=== PATIENT | male | born 1975 | race Caucasian/White ===

== ENCOUNTER 2016-08-22 09:53 | Observation (INO) | payer BC ==
[~2016-08-22] VITALS: Ht 180.3 cm; Wt 96.8 kg
[~2016-08-22 09:53] MED LIST: CEPHALEXIN500 M1 PO; LORTAB 10/500 51 TAB PO; NAPROSYN500 MG PO; NEXIUM40 MG PO
[2016-08-22] MEDS ORDERED: MSIR30 MG PO (09:59)
[2016-08-22] MEDS ORDERED: VIVLODEX10 MG PO (09:59)
[2016-08-22] MEDS ORDERED: NEURONTIN300 MG/CAP PO (09:59)
[2016-08-22] MEDS ORDERED: PRINIVIL10 MG PO (10:00)
[2016-08-22] MEDS ORDERED: ADDERALL20 MG PO (10:00)
[2016-08-22] MEDS ORDERED: HUMIRA40 MG/0.1 SQ (10:17)
[2016-08-22 12:02] LABS: BASO # 0.1 (0.0-0.2); BASO % 0.8 % (0.0-2.0); EOS # 0.3 (0.0-0.7); EOS % 4.4 % (0-4.0); GRAN # 3.7 (1.4-6.5); GRAN % 48.1 % (42.2-75.2); HEMATOCRIT 40.5 % (42.0-52.0); HEMOGLOBIN 13.2 g/dl (13.5-18.0); LYMPH # 2.9 (1.2-3.4); LYMPH % 37.8 % (20.0-51.0); MEAN CELL VOLUME 82 fl (80.0-100.0); MEAN CORPUSCULAR HEMOGLOBIN 27 pg (27.0-31.0); MEAN CORPUSCULAR HGB CONC 33 g/dl (33.0-37.0); MEAN PLATELET VOLUME 9.5 fl (7.4-10.4); MONO # 0.7 (0.1-0.6); MONO % 8.6 % (1.7-9.3); PLATELET COUNT 246 K/mm3 (130-400); RED BLOOD COUNT 4.94 M/mm3 (4.20-5.60); REDCELL DISTRIBUTION WIDTH-CV 13.5 % (11.5-14.5); WHITE BLOOD COUNT 7.8 K/mm3 (4.8-10.8)
[2016-08-22 12:11] LABS: ADJUSTED CALCIUM 9.2 mg/dL (8.4-10.2); ALBUMIN 4.1 gm/dL (3.5-5.0); BILIRUBIN,TOTAL 0.9 mg/dL (0.0-1.0); C-REACTIVE PROTEIN 1.2 mg/dL (0.0-0.9); CALCIUM 9.3 mg/dL (8.4-10.2); CREATININE, serum 0.71 mg/dL (0.66-1.25); POTASSIUM 4.1 mmol/L (3.4-5.0)
[2016-08-22 15:13] VITALS: BP 117/80; PULSE 78; TEMP 97.5
[2016-08-22 15:21] VITALS: BP 109/66; PULSE 72
[2016-08-22] MEDS ORDERED: MS CONTIN 330 MG/TAB PO (19:06)
[2016-08-22 19:36] VITALS: BP 145/86; PULSE 83; TEMP 97.8
[2016-08-22 23:25] VITALS: BP 127/75; PULSE 78; TEMP 97.5
[2016-08-23 03:21] VITALS: BP 127/85; PULSE 88; TEMP 97.9
[2016-08-23 04:50] LABS: BASO # 0.1 (0.0-0.2); BASO % 0.9 % (0.0-2.0); EOS # 0.4 (0.0-0.7); EOS % 5.1 % (0-4.0); GRAN # 2.7 (1.4-6.5); GRAN % 39.3 % (42.2-75.2); HEMATOCRIT 39.8 % (42.0-52.0); HEMOGLOBIN 12.7 g/dl (13.5-18.0); LYMPH # 3.2 (1.2-3.4); LYMPH % 46.5 % (20.0-51.0); MEAN CELL VOLUME 84 fl (80.0-100.0); MEAN CORPUSCULAR HEMOGLOBIN 27 pg (27.0-31.0); MEAN CORPUSCULAR HGB CONC 32 g/dl (33.0-37.0); MEAN PLATELET VOLUME 9.9 fl (7.4-10.4); MONO # 0.6 (0.1-0.6); MONO % 8.1 % (1.7-9.3); PLATELET COUNT 233 K/mm3 (130-400); RED BLOOD COUNT 4.72 M/mm3 (4.20-5.60); REDCELL DISTRIBUTION WIDTH-CV 13.6 % (11.5-14.5); WHITE BLOOD COUNT 6.8 K/mm3 (4.8-10.8)
[2016-08-23 05:36] LABS: C-REACTIVE PROTEIN 1.1 mg/dL (0.0-0.9); CALCIUM 9.1 mg/dL (8.4-10.2); CREATININE, serum 0.73 mg/dL (0.66-1.25); POTASSIUM 4.4 mmol/L (3.4-5.0)
[2016-08-23 07:30] VITALS: BP 131/84; PULSE 73; TEMP 97.6
[2016-08-23 12:56] VITALS: BP 142/90; PULSE 68; TEMP 98.6
[2016-08-23] MEDS ORDERED: DOXYCYCLINE 10100 MG PO (15:23)
== END 2016-08-23 16:23 | disposition home or self-care (01) ==
LOC: COL.ER 09:53 → MEDICAL 12:41
PROVIDERS: Family Medicine; Nurse Practitioner
DX: L03.115 Cellulitis of right lower limb (principal); Z86.14 Personal history of Methicillin resistant Staphylococcus aureus infection; G89.29 Other chronic pain; M54.5 Low back pain; F41.9 Anxiety disorder, unspecified; L40.9 Psoriasis, unspecified; I10 Essential (primary) hypertension
CPT/HCPCS: 99222-AI; G0378; J1650; J3370; J7030; J7050

== ENCOUNTER 2016-08-27 10:30 | Emergency (ER) | payer BC ==
[~2016-08-27] VITALS: Ht 180.3 cm; Wt 95.5 kg
[~2016-08-27 10:30] MED LIST changes: +ADDERALL20 MG PO; +DOXYCYCLINE 10100 MG PO; +HUMIRA40 MG/0.1 SQ; +MS CONTIN 330 MG/TAB PO; +MSIR30 MG PO; +NEURONTIN300 MG/CAP PO; +PRINIVIL10 MG PO; +VIVLODEX10 MG PO
[2016-08-27 10:37] VITALS: BP 130/83; PULSE 81; TEMP 98.2
== END 2016-08-27 16:10 | disposition left against medical advice (07) ==
LOC: COL.ER 10:30
DX: Z53.9 Procedure and treatment not carried out, unspecified reason (principal)

== ENCOUNTER → 2016-09-20 | Outpatient (CLI) | payer OTHER | LOC: BHSO 08:03 | DX: F90.0 Attention-deficit hyperactivity disorder, predominantly inattentive type (principal) ==

== ENCOUNTER → 2017-03-22 | Outpatient (CLI) | payer OTHER | LOC: BHSO 08:03 | DX: F90.0 Attention-deficit hyperactivity disorder, predominantly inattentive type (principal) ==

== ENCOUNTER 2017-09-04 06:19 | Emergency (ER) | payer OTHER ==
[~2017-09-04] VITALS: Ht 180.3 cm; Wt 93.2 kg
[~2017-09-04 06:19] MED LIST changes: +MOBIC15 MG PO; +NEXIUM 40MG40 MG PO; -NEXIUM40 MG PO; -VIVLODEX10 MG PO
[2017-09-04 06:21] VITALS: TEMP 96.7
[2017-09-04 07:04] LABS: COLLECTION METHOD CLEAN CATCH
[2017-09-04 07:10] LABS: BASO # 0.1 (0.0-0.2); BASO % 0.7 % (0.0-2.0); EOS # 0.3 (0.0-0.7); EOS % 3.4 % (0-4.0); GRAN # 6.5 (1.4-6.5); GRAN % 66.1 % (42.2-75.2); HEMATOCRIT 42.8 % (42.0-52.0); HEMOGLOBIN 13.9 g/dl (13.5-18.0); LYMPH # 2.3 (1.2-3.4); LYMPH % 23.4 % (20.0-51.0); MEAN CELL VOLUME 84 fl (80.0-100.0); MEAN CORPUSCULAR HEMOGLOBIN 27 pg (27.0-31.0); MEAN CORPUSCULAR HGB CONC 33 g/dl (33.0-37.0); MEAN PLATELET VOLUME 9.8 fl (7.4-10.4); MONO # 0.6 (0.1-0.6); MONO % 6.2 % (1.7-9.3); PLATELET COUNT 250 K/mm3 (130-400); RED BLOOD COUNT 5.09 M/mm3 (4.20-5.60); REDCELL DISTRIBUTION WIDTH-CV 13.3 % (11.5-14.5)
[2017-09-04 07:15] LABS: ALBUMIN 4.5 gm/dL (3.5-5.0); BILIRUBIN,TOTAL 0.6 mg/dL (0.0-1.0); CALCIUM 9.4 mg/dL (8.4-10.2); CREATININE, serum 0.8 mg/dL (0.66-1.25); POTASSIUM 4.2 mmol/L (3.4-5.0); TOTAL PROTEIN 7.1 gm/dL (6.4-8.2)
[2017-09-04 07:16] LABS: MUCOUS Present /lpf; PH 5 (5-8); SQUAMOUS EPITHELIAL None Seen /hpf; URINE APPEARANCE Hazy; URINE BACTERIA None Seen /hpf; URINE BILIRUBIN Negative (NEGATIVE); URINE BLOOD 3+ (NEGATIVE); URINE COLOR Yellow; URINE GLUCOSE 1+ (NEGATIVE); URINE KETONE Trace (NEGATIVE); URINE LEUKOCYTE ESTERASE Negative (NEGATIVE); URINE NITRATE Negative (NEGATIVE); URINE PROTEIN(semi-quant) 1+ (NEGATIVE); URINE RBC >50 /hpf
[2017-09-04] MEDS ORDERED: NORCO 325 MG-51 TAB PO (07:51)
[2017-09-04] MEDS ORDERED: ZOFRAN 4MG T4 MG/TAB PO ×2 (07:51→08:36)
[2017-09-04] MEDS ORDERED: GLUCOPHAGE500 MG/TAB PO (07:58)
[2017-09-04] MEDS ORDERED: HUMIRA40 MG/0.8 SQ (07:59)
[2017-09-04] MEDS ORDERED: ZESTRIL 10MG10 MG PO (07:59)
[2017-09-04] MEDS ORDERED: MOBIC15 MG PO (07:59)
[2017-09-04] MEDS ORDERED: ADDERALL20 MG PO (08:01)
[2017-09-04] MEDS ORDERED: NORCO 325 MG-7.1 TAB PO (08:04)
[2017-09-04] MEDS ORDERED: PERCOCET 325 MG1 TA3 PO (08:05)
[2017-09-04 08:19] VITALS: BP 137/94; PULSE 70
[2017-09-04] MEDS ORDERED: FLOMAX 0.40.4 MG/CAP PO (08:36)
== END 2017-09-04 08:37 | disposition home or self-care (01) ==
LOC: COL.ER 06:19
PROVIDERS: Emergency Medicine
DX: N20.1 Calculus of ureter (principal); K21.9 Gastro-esophageal reflux disease without esophagitis; F17.210 Nicotine dependence, cigarettes, uncomplicated; Z79.84 Long term (current) use of oral hypoglycemic drugs; Z87.442 Personal history of urinary calculi; Z88.2 Allergy status to sulfonamides; Z88.6 Allergy status to analgesic agent
CPT/HCPCS: J1170; J1885; J2405; J3010; J7030

== ENCOUNTER → 2017-09-06 | Outpatient (CLI) | payer OTHER ==
[~2017-09-06] MED LIST changes: +FLOMAX 0.40.4 MG/CAP PO; +GLUCOPHAGE500 MG/TAB PO; +HUMIRA40 MG/0.8 SQ; +NORCO 325 MG-51 TAB PO; +NORCO 325 MG-7.1 TAB PO; +PERCOCET 325 MG1 TA3 PO; +ZESTRIL 10MG10 MG PO; +ZOFRAN 4MG T4 MG/TAB PO
== END ==
LOC: BHSO 07:55
DX: F90.0 Attention-deficit hyperactivity disorder, predominantly inattentive type (principal)
CPT/HCPCS: G0463

== ENCOUNTER → 2018-03-07 | Outpatient (CLI) | payer OTHER | LOC: BHSO 08:03 | DX: F90.0 Attention-deficit hyperactivity disorder, predominantly inattentive type (principal) | CPT/HCPCS: G0463 ==

== ENCOUNTER 2018-04-07 10:00 | Emergency (ER) | payer OTHER ==
[~2018-04-07] VITALS: Ht 180.3 cm; Wt 93.2 kg
[2018-04-07 10:05] VITALS: BP 161/101; TEMP 99
[2018-04-07 11:05] VITALS: PULSE 80
== END 2018-04-07 11:06 | disposition home or self-care (01) ==
LOC: COL.ER 10:00
DX: S09.90XA Unspecified injury of head, initial encounter (principal); S01.111A Laceration without foreign body of right eyelid and periocular area, initial encounter; Z79.84 Long term (current) use of oral hypoglycemic drugs; W22.8XXA Striking against or struck by other objects, initial encounter

== ENCOUNTER → 2018-10-17 | Outpatient (CLI) | payer OTHER | LOC: BHSO 07:54 | DX: F90.0 Attention-deficit hyperactivity disorder, predominantly inattentive type (principal) | CPT/HCPCS: G0463 ==

== ENCOUNTER → 2019-04-16 | Outpatient (CLI) | payer OTHER | LOC: BHSO 08:34 | DX: F90.0 Attention-deficit hyperactivity disorder, predominantly inattentive type (principal) | CPT/HCPCS: G0463 ==

== ENCOUNTER → 2019-10-07 | Outpatient (CLI) | payer OTHER | LOC: BHSO 07:56 | DX: F90.0 Attention-deficit hyperactivity disorder, predominantly inattentive type (principal) | CPT/HCPCS: G0463 ==

== ENCOUNTER → 2020-04-07 | Outpatient (CLI) | payer BC | LOC: BHSO 08:06 | DX: F90.0 Attention-deficit hyperactivity disorder, predominantly inattentive type (principal) | CPT/HCPCS: G0463 ==

== ENCOUNTER 2020-04-19 08:12 | Emergency (ER) | payer BC ==
[~2020-04-19] VITALS: Ht 177.8 cm; Wt 92.7 kg
[2020-04-19 08:25] VITALS: TEMP 98.6
[2020-04-19] MEDS ORDERED: CEPHALEXIN500 M1 PO (11:24)
[2020-04-19 12:00] VITALS: BP 136/76; PULSE 82
== END 2020-04-19 12:00 | disposition home or self-care (01) ==
LOC: COL.ER 08:12
DX: S60.552A Superficial foreign body of left hand, initial encounter (principal); K21.9 Gastro-esophageal reflux disease without esophagitis; Z88.2 Allergy status to sulfonamides; Z87.891 Personal history of nicotine dependence; Z79.84 Long term (current) use of oral hypoglycemic drugs; Y92.009 Unspecified place in unspecified non-institutional (private) residence as the place of occurrence of the external cause

== ENCOUNTER → 2022-04-04 | Outpatient (RCR) | payer BC | END | disposition home or self-care (01) | LOC: MKS.ESL.PT | DX: Z96.653 Presence of artificial knee joint, bilateral (principal) | CPT/HCPCS: G0283-GP ==

== ENCOUNTER → 2022-05-04 | Outpatient (RCR) | payer BC | END | disposition home or self-care (01) | LOC: MKS.ESL.PT | DX: Z47.1 Aftercare following joint replacement surgery (principal); Z96.652 Presence of left artificial knee joint ==

== ENCOUNTER 2022-05-31 15:15 | Outpatient (RCR) | payer BC | END 2022-06-04 | disposition home or self-care (01) | LOC: MKS.ESL.PT | DX: Z47.1 Aftercare following joint replacement surgery (principal); Z96.652 Presence of left artificial knee joint ==